=== PATIENT | male | born 2000 | race Two or more races ===

== ENCOUNTER 2020-02-14 04:03 | Emergency (ER) | payer MEDICAID ==
[~2020-02-14] VITALS: Ht 172.7 cm; Wt 100.0 kg
[2020-02-14] MEDS ORDERED: METHYLPREDNISOLONE SOD SUCC 125 MG/2 ML VIAL IV STA (04:24)
[2020-02-14] MEDS ORDERED: DIPHENHYDRAMINE 50MG/ML VIAL IV ONE (04:30)
[2020-02-14] MEDS ORDERED: FAMOTIDINE 20MG TABLET PO ONE (04:30)
[2020-02-14 05:10] LABS: BASOPHILS % 0.2 % (0.0-2.0); EOSINOPHILS % 1.1 % (0.0-5.0); HEMATOCRIT. 46.2 % (42.0-52.0); HEMOGLOBIN. 16.3 g/dL (14.0-18.0); LYMPHOCYTES % 14.7 % (20.0-50.0); MEAN CORPUSCULAR HEMOGLOBIN 30.5 pg (28.0-32.0); MEAN CORPUSCULAR VOLUME 86.6 fL (80.0-94.0); MEAN PLATELET VOLUME 8.5 fl (7.4-10.4); PLATELET 418 x1000/uL (130-400); RED BLOOD CELL COUNT 5.34 mill/uL (4.7-6.1); RED CELL DISTRIBUTION WIDTH 12.5 % (11.6-14.6)
[2020-02-14 05:20] LABS: CHLORIDE 105 mEq/L (98-107)
[2020-02-14] MEDS ORDERED: AMPICILLIN SOD/SULBACTAM NA 3 G in SODIUM CHLORIDE 0.9% 100 ML IV STA (06:38)
[2020-02-14] MEDS ORDERED: SODIUM CHLORIDE 0.9% 1,000 ML IV ONE ×2 (07:08→08:43)
[2020-02-14 10:28] VITALS: BP 120/70
== END 2020-02-14 10:30 | disposition home or self-care (01) ==
LOC: ER 04:03
DX: L03.213 Periorbital cellulitis (principal); T78.49XA Other allergy, initial encounter; X58.XXXA Exposure to other specified factors, initial encounter
CPT/HCPCS: 36415; 71045; 80053; 83880; 84484; 85025; 87040; 93005; 96365; 96375; 99285; J0295; J1200; J2930; J7030; J7050